=== PATIENT | male | born 1980 | race Two or more races ===

== ENCOUNTER 2017-08-06 08:47 | Day surgery (SDC) | payer BC ==
--- NOTE | 2017-08-06 08:10 | PCM.PREANE ---
<Lanie Leos - Last Filed: 08/06/17 08:07> Preanesthetic Assessment - Anesthesia/Transfusion/Family Hx Family History of Anesthesia Reaction: No Transfusion History: No Prior Transfusion(s) Intubation History: Unknown - Physical Assessment NPO Status Date: 08/05/17 Vital Signs: Last Vital Signs Temp 36.5 C 08/06/17 09:10 Pulse 84 08/06/17 09:10 Resp 16 08/06/17 09:10 BP 146/87 H 08/06/17 09:10 Pulse Ox 98 08/06/17 09:10 Mental Status: Alert & Oriented x3 - Lab Values: Laboratory Last Values MRSA (PCR) Negative 07/24/17 10:10 All lab values reviewed and noted and within acceptable ranges to proceed with scheduled procedure. - Allergies Allergies/Adverse Reactions: Allergies Allergy/AdvReac Type Severity Reaction Status Date / Time No Known Allergies Allergy Verified 08/05/17 15:12 - Acknowledgements Anesthesia Type Planned: General Anesthesia (And a right interscalene block under US guidance for post operative pain control requested by Dr. Farmer.) Pt an Appropriate Candidate for the Planned Anesthesia: Yes Alternatives and Risks of Anesthesia Discussed w Pt/Guardian: Yes Pt/Guardian Understands and Agrees with Anesthesia Plan: Yes PreAnesthesia Questionnaire - Past Health History Medical/Surgical History: Denies Medical/Surgical History HEENT History: Reports: None Cardiovascular History: Reports: None Respiratory History: Reports: Other (See Below) Other Respiratory History: snoring Genitourinary History: Reports: None MEDICAL OFFICE ASST History: Reports: None Musculoskeletal History: Reports: Back Pain, Chronic, Other (See Below) Other Musculoskeletal History: shoulder pain, rotator cuff tear Neurological History: Reports: None Psychiatric History: Reports: Other (See Below) Other Psychiatric History: fatigue Endocrine/Metabolic History: Reports: None Hematologic History: Reports: None Immunologic History: Reports: None Oncologic (Cancer) History: Reports: None Dermatologic History: Reports: None - Infectious Disease History Infectious Disease History: Reports: TB - Past Surgical History Head Surgeries/Procedures: Reports: None HEENT Surgical History: Reports: None Cardiovascular Surgical History: Reports: None GI Surgical History: Reports: Cholecystectomy Female Surgical History: Reports: None Male Surgical History: Reports: None Endocrine Surgical History: Reports: None Neurological Surgical History: Reports: None Musculoskeletal Surgical History: Reports: None Oncologic Surgical History: Reports: None Dermatological Surgical History: Reports: None - SUBSTANCE USE Smoking Status *Q: Never Smoker Second Hand Smoke Exposure: No Days Per Week of Alcohol Use: 0 Recreational Drug Use History: No - HOME MEDS Home Medications: Home Meds Acetaminophen/HYDROcodone [[place] 325-5 MG] 1 - 2 tab PO Q6H PRN #40 tablet 08/06 [Rx] Cyclobenzaprine [Flexeril] 10 mg PO Q8H PRN #40 tab 08/06/17 [Rx] - CURRENT (IN HOUSE) MEDS Current Meds: Current Medications Lactated Ringer's (Ringers, Lactated) 1,000 mls @ 125 mls/hr IV ASDIRECTED SHILOH Stop: 08/06/17 23:00 Last Admin: 08/06/17 09:20 Dose: 125 mls/hr Lidocaine/Sodium Bicarbonate (Buffered Lidocaine 1% In Ns 8.4%) 0.25 ml IV ONETIME PRN PRN Reason: Prior to IV Start Stop: 08/06/17 18:00 Last Admin: 08/06/17 09:20 Dose: 0.25 ml Sodium Chloride (Saline Flush) 10 ml FLUSH ASDIRECTED PRN PRN Reason: Keep Vein Open Stop: 08/06/17 23:00 Discontinued Medications Bupivacaine HCl (Marcaine 0.25%) Confirm Administered Dose 30 ml .ROUTE .STK- MED ONE Stop: 08/06/17 09:30 Cefazolin Sodium (Ancef) Confirm Administered Dose 2 gm .ROUTE .STK-MED ONE Stop: 08/06/17 07:10 Dexamethasone (Dexamethasone) Confirm Administered Dose 20 mg .ROUTE .STK-MED ONE Stop: 08/06/17 07:10 Epinephrine HCl (Adrenalin) 3 mg .XX ONETIME ONE Stop: 08/06/17 07:01 Epinephrine HCl (Adrenalin) Confirm Administered Dose 1 mg .ROUTE .STK-MED ONE Stop: 08/06/17 07:10 Fentanyl (Sublimaze) Confirm Administered Dose 250 mcg .ROUTE .STK-MED ONE Stop: 08/06/17 07:10 Lactated Ringer's (Ringers, Lactated) Confirm Administered Dose 1,000 mls @ as directed .ROUTE .STK-MED ONE Stop: 08/06/17 07:10 Lidocaine HCl (Xylocaine-Mpf 1%) Confirm Administered Dose 8 mls @ as directed .ROUTE .STK-MED ONE Stop: 08/06/17 07:10 Ketorolac Tromethamine (Toradol) Confirm Administered Dose 30 mg .ROUTE .STK- MED ONE Stop: 08/06/17 07:10 Midazolam HCl (Versed 1 Mg/Ml) Confirm Administered Dose 2 mg .ROUTE .STK-MED ONE Stop: 08/06/17 07:10 Ondansetron HCl (Zofran) Confirm Administered Dose 4 mg .ROUTE .STK-MED ONE Stop: 08/06/17 07:10 Propofol (Diprivan 20 Ml) Confirm Administered Dose 200 mg .ROUTE .STK-MED ONE Stop: 08/06/17 07:10 Rocuronium [place] (Zemuron) Confirm Administered Dose 50 mg .ROUTE .STK-MED ONE Stop: 08/06/17 07:10 Ropivacaine (Naropin 0.5%) Confirm Administered Dose 30 ml .ROUTE .STK-MED ONE Stop: 08/06/17 07:10 <Randolph Ramirez W - Last Filed: 08/06/17 10:03> Preanesthetic Assessment - Procedure Proposed Procedure: R) SVA with RCR, SA - Anesthesia/Transfusion/Family Hx Anesthesia History: Prior Anesthesia Without Reaction - Review of Systems General: No Symptoms Pulmonary: Other (? HARSHA, in need of a sleep study per patient ) Cardiovascular: No Symptoms Gastrointestinal: No Symptoms Neurological: No Symptoms Other: Reports: Anxiety (hx, currently not medicated ) - Physical Assessment NPO Status Time: 18:30 Height: 1.78 m Weight: 97 kg ASA Class: 2 Airway Class: Mallampati = 1 Dentition: Reports: Normal Dentition Thyro-Mental Finger Breadths: 3 Mouth Opening Finger Breadths: 3 ROM/Head Extension: Full Lungs: Clear to Auscultation, Normal Respiratory Effort Cardiovascular: Regular Rate, Regular Rhythm - Blood Blood Available: No Product(s) Available: None - Anesthesia Plan Pre-Op Medication Ordered: None - Acknowledgements Anesthesia Type Planned: General Anesthesia
[~2017-08-06 08:47] MED LIST: Dexamethasone 4 MG/ML 5 ML MDV ONE; EPINEPHrine 1 MG/ML 30 ML MDV ONE; EPINEPHrine 1 MG/ML SDV ONE; Ketorolac 30 MG/ML SDV ONE; Lactated Ringers 1,000 ML IV SCH; Lactated Ringers 1,000 ML ONE; Lidocaine 1% 8 ML ONE; Lidocaine 1%/Sod Bicarbonate in NS 8.4% 1 ML Syringe IV PRN; Midazolam 1 MG/ML 2 ML SDV ONE; Ondansetron 4 MG/2 ML SDV ONE; Propofol 200 MG/20 ML SDV ONE; Rocuronium 50 MG/5 ML Vial ONE; Ropivacaine 0.5% 5 MG/ML 30 ML SDV ONE; Sodium Chloride 0.9% 10 ML Syringe FLUSH PRN; ceFAZolin 1 GM Vial ONE; fentaNYL 250 MCG/5 ML SDV ONE
[2017-08-06] MEDS ORDERED: Bupivacaine 0.25% 30 ML SDV ONE (09:29)
[2017-08-06] MEDS ORDERED: Ondansetron 4 MG/2 ML SDV IVPUSH PRN (11:40)
[2017-08-06] MEDS ORDERED: fentaNYL 100 MCG/2 ML SDV IVPUSH PRN (11:40)
[2017-08-06] MEDS ORDERED: HYDROmorphone 0.5 MG/0.5 ML Syringe IVPUSH PRN (11:40)
--- NOTE | 2017-08-06 12:05 | PCM.OPNOTE ---
- General Post-Op/Procedure Note Date of Surgery/Procedure: 08/06/17 Operative Procedure(s): right shoulder video arthroscopy with rotator cuff repair, extensive debridement and subacromial decompression Pre Op Diagnosis: right shoulder rotator cuff tear with impingement Post-Op Diagnosis: Same Anesthesia Technique: General ET Tube, Regional Block (interscalene) Primary Surgeon: Magdy Farmer Anesthesia Provider: Claudia Gordon [employer]ry Worker: Serina Gomez EBL in mLs: 5 Complications: None Condition: Good
[2017-08-06] MEDS ORDERED: Propofol 200 MG/20 ML SDV ONE ×2 (12:08)
--- NOTE | 2017-08-06 12:28 | PCM.POSTAN ---
POST ANESTHESIA ASSESSMENT - MENTAL STATUS Mental Status: Somnolent - VITAL SIGNS Pulse Rate: 81 SaO2: 97 Resp Rate: 10 Blood Pressure: 103/64 Temperature: 36.8 C - RESPIRATORY Respiratory Status: Respiratory Rate WNL, Airway Patent, O2 Saturation Stable, Supplemental Oxygen - CARDIOVASCULAR CV Status: Pulse Rate WNL, Blood Pressure Stable - GASTROINTESTINAL GI Status: No Symptoms - PAIN Pain Score: 0 - POST OP HYDRATION Hydration Status: Adequate & Stable
[2017-08-06] MEDS ORDERED: Meperidine PF 50 MG/ML Syringe IVPUSH PRN (12:52)
[2017-08-06 13:17] VITALS: BP 137/83
--- NOTE | 2017-08-06 13:24 | PCM.SN ---
- Free Text/Narrative Note: Anesthesia Note: (Right Interscalene block note) Date: 08/06/2017 Time Out: 1021 Start: 1020 Stop: 1035 Surgical Procedure: Right Shoulder Video Arthroscopy with Rotator Cuff Repair, and Subacromial Decompression. Diagnosis Right Shoulder Rotator Cuff Tear Current Procedure: Right interscalene block under US guidance for postoperative pain control requested by Dr. Farmer. Patient chart reviewed, risk/benefits discussed with patient, consent obtained. Patient positioned supine, monitors/alarms on, oxygen placed via nasal cannula at 2 LPM. IV sedation administered: Versed 2mg IV @ 1022, Fentanyl 100mcg IV @ 1026 Right shoulder prepped with two chloropreps. Sterile drapes placed with aseptic technique noted. Under US guidance, right subclavian artery visualized along with the right brachial plexus. Plexus followed up to C6 cricoid level, and area localized with 2mls of 1% lidocaine. 22gauge 2 inch stimiplex needle advanced under US with 0.6mV with stimulation of biceps noted. Good stimulation noted with decreased voltage and absent at 0.2mVs. 1ml of Normal Saline injected with loss of stimulation noted to confirm needle not placed intraneurally. Incremental dosing of 5mls with negative aspiration noted prior to each injection of 0.5% ropivacaine with 1:200,000 epinephrine. Total volume=25mls. Please refer to nurses noted for vital signs. Rowdy Gordon CRNA
--- NOTE | 2017-08-06 13:43 | PCM48HPAN ---
Post Anesthesia Note - EVALUATION WITHIN 48HRS OF ANESTHETIC Vital Signs in Normal Range: Yes Patient Participated in Evaluation: Yes Respiratory Function Stable: Yes Airway Patent: Yes Cardiovascular Function Stable: Yes Hydration Status Stable: Yes Pain Control Satisfactory: Yes Nausea and Vomiting Control Satisfactory: Yes Mental Status Recovered: Yes
--- NOTE | 2017-08-17 14:34 | OR ---
DATE OF OPERATION: 08/06/2017 SURGEON: Magdy Farmer MD OPERATION PERFORMED: Right shoulder video arthroscopy with small rotator cuff repair, extensive debridement, and subacromial decompression. PREOPERATIVE DIAGNOSIS: Right shoulder rotator cuff tear with impingement. POSTOPERATIVE DIAGNOSIS: Right shoulder rotator cuff tear with impingement. ANESTHESIA: General endotracheal intubation with regional interscalene block. ANESTHESIA PROVIDER: Hayde Madden. AUTOMOTIVE DESIGN DRAFTER: Serina Gomez PA-C. ESTIMATED BLOOD LOSS: 5 mL. COMPLICATIONS: None. CONDITION: Stable. DESCRIPTION OF PROCEDURE: The patient was identified in the preoperative holding area. Proper site was marked and identified by the surgeon. The patient was taken back to the operating theater, where after adequate anesthesia, the patient was placed in a lazy left lateral decubitus position. A wedge was placed posteriorly. All bony prominences were well padded. The patient's right upper extremity was then sterilely prepped and draped in the usual sterile fashion. OR time-out was performed. The patient received 2 g of IV Ancef, 15 pounds of traction was applied to the right upper extremity. Standard posterior portal incision was made. The scope trocar was introduced to the glenohumeral joint. At this time, the glenohumeral joint showed no signs of pathology. An anterior portal was then created with the use of a spinal needle with outside in technique. There was no glenohumeral chondromalacia. There was no biceps pathology. There was significant high-grade partial-thickness tear noted to the anterior most aspect of the supraspinatus. Rest of the rotator cuff was intact. Subscapularis was intact. At this time, the scope trocar was removed and placed in the subacromial space. The patient was noted to have extensive bursitis in overgrowth of the bursa in the subacromial space. Lateral portal was created and an extensive debridement of subacromial space was then done at this time. At this time, the patient was noted to have a high-grade partial-thickness tear which was then brought into a small full-thickness tear at the anterior aspect of the supraspinatus. At this time, the rest of the tendon looked robust, so at this time, it was decided we would just do FiberTape in a horizontal mattress with a lateral row anchor only. At this time, the FiberTape was then passed in a horizontal mattress stitch-type fashion. This was brought through a 4.75 mm Arthrex SwiveLock anchor. The tap was used out laterally and the SwiveLock anchor was then placed. Tension was placed on the sutures and the SwiveLock anchor was then placed in the bone. It was noted to have adequate watertight repair at this time. At this time, the patient was also noted to have a type 2 acromion. So with use of a full-radius lilo and resector, a subacromial decompression/acromioplasty was performed back to a type 1 acromion which was found to have no sharp edges and in good flat contour. At this time, excess saline was drained from the shoulder. A 3-0 nylon simple suture was used for closure of the skin. The patient was placed in a sterile soft dressing and a pillow sling and sent to PACU in stable condition. SAVANNAH /[id number]
== END 2017-08-06 14:10 | disposition home or self-care (01) ==
LOC: JD.SDS 08:47
PROVIDERS: ATTEND Orthopaedic Surgery
DX: M75.101 Unspecified rotator cuff tear or rupture of right shoulder, not specified as traumatic (principal); M75.41 Impingement syndrome of right shoulder; Z90.49 Acquired absence of other specified parts of digestive tract; Z87.891 Personal history of nicotine dependence
CPT/HCPCS: 29823; 29826; 29827; 64415; 87641; J0171; J0690; J1100; J1885; J2175; J2250; J2405; J2795; J3010; J3490; J7120; 01620; 64450; J2704

== ENCOUNTER 2017-08-08 23:51 | Emergency (ER) | payer BC ==
--- NOTE | 2017-08-09 00:17 | EDM.PDOC ---
ED HPI GENERAL MEDICAL PROBLEM - General Chief Complaint: Chest Pain Stated Complaint: CHEST PAIN/SOB Time Seen by Provider: 08/08/17 23:58 Source of Information: Reports: Patient History Limitations: Reports: No Limitations - History of Present Illness INITIAL COMMENTS - FREE TEXT/NARRATIVE: This is a 36-year-old male. He was sitting at home this evening when he had a sudden onset of palpitations in his chest and he started breathing real rapidly and he started feeling some spasms or twitching in his left chest area. No pain down his arm. He denies any recent history of anxiety however in his old charts he does have a history of anxiety. Due to the palpitations and shortness of breath and the feeling in his left chest he comes to the ER for evaluation. He denies any sharp pain in his chest. He did just have surgery on his right shoulder some rotator cuff he is not sure which one. He denies any pain or swelling or redness of his legs he denies any leg symptoms whatsoever. He is noted during the conversation to have twitching every so often of his arms and legs. The palpitations have essentially resolved so we still having some shortness of breath and the spasms in his left chest region. He denies any nausea vomiting denies any diaphoresis and no abdominal symptoms. Chest Pain Score (Numeric/FACES): 6 - Related Data Allergies Allergy/AdvReac Type Severity Reaction Status Date / Time No Known Allergies Allergy Verified 08/05/17 15:12 Home Meds: Home Meds . [No Known Home Meds] 08/08/17 [History] Past Medical History - Past Health History Medical/Surgical History: Denies Medical/Surgical History HEENT History: Reports: None Cardiovascular History: Reports: None Respiratory History: Reports: Other (See Below) Other Respiratory History: snoring Genitourinary History: Reports: None CONVERTER SKIMMER History: Reports: None Musculoskeletal History: Reports: Back Pain, Chronic, Other (See Below) Other Musculoskeletal History: shoulder pain, rotator cuff tear Neurological History: Reports: None Psychiatric History: Reports: Anxiety, Other (See Below) Other Psychiatric History: fatigue Endocrine/Metabolic History: Reports: None Hematologic History: Reports: None Immunologic History: Reports: None Oncologic (Cancer) History: Reports: None Dermatologic History: Reports: None - Infectious Disease History Infectious Disease History: Reports: TB - Past Surgical History Head Surgeries/Procedures: Reports: None HEENT Surgical History: Reports: None Cardiovascular Surgical History: Reports: None Other GI Surgeries/Procedures: non functioning gallbladder Male Surgical History: Reports: None Endocrine Surgical History: Reports: None Neurological Surgical History: Reports: None Musculoskeletal Surgical History: Reports: None Oncologic Surgical History: Reports: None Dermatological Surgical History: Reports: None Social & Family History - Family History Family Medical History: Noncontributory - Tobacco Use Smoking Status *Q: Never Smoker Years of Tobacco use: 8 Second Hand Smoke Exposure: No - Caffeine Use Caffeine Use: Reports: None - Alcohol Use Days Per Week of Alcohol Use: 0 - Recreational Drug Use Recreational Drug Use: No Drug Use in Last 12 Months: No ED ROS GENERAL - Review of Systems Review Of Systems: See Below Constitutional: Denies: Fever, Chills HEENT: Reports: No Symptoms Respiratory: Reports: Shortness of Breath. Denies: Wheezing, Pleuritic Chest Pain, Cough Cardiovascular: Reports: Chest Pain. Denies: Lightheadedness Endocrine: Reports: No Symptoms GI/Abdominal: Denies: Abdominal Pain, Nausea, Vomiting : Reports: No Symptoms Musculoskeletal: Reports: Other (Status post right shoulder surgery) Skin: Denies: Pallor, Diaphoresis Neurological: Reports: No Symptoms Psychiatric: Reports: Anxiety Hematologic/Lymphatic: Reports: No Symptoms ED EXAM, GENERAL - Physical Exam Exam: See Below Exam Limited By: No Limitations General Appearance: Alert, WD/WN, Anxious Eye Exam: Bilateral Eye: Normal Inspection Ears: Normal External Exam Nose: Normal Inspection Throat/Mouth: Normal Inspection, Normal Lips, Normal Voice, No Airway Compromise Head: Normocephalic Neck: Supple Respiratory/Chest: No Respiratory Distress, Lungs Clear, Normal Breath Sounds Cardiovascular: Regular Rate, Rhythm, No Murmur, Other (He is not having any palpitations at this time) GI/Abdominal: Soft Back Exam: Normal Inspection, Full Range of Motion Extremities: Normal Inspection, Other (Arm and shoulder are in a shoulder immobilizer, he asked for use of his left upper extremity with no symptoms) Neurological: Alert, Oriented Psychiatric: Anxious Skin Exam: Warm, Dry EKG INTERPRETATION EKG Interpretation Comments: EKG showed a normal sinus rhythm there was no acute ST or T-wave changes or is no ischemia noted. Course - Vital Signs Last Recorded V/S: Last Vital Signs Temp 95.2 F L 08/08/17 23:54 Pulse Resp BP Pulse Ox - Orders/Labs/Meds Orders: Active Orders 24 hr Category Date Time Status EKG Documentation Completion [RC] STAT Care 08/09/17 00:09 Active Chest 2V [CR] Stat Exams 08/09/17 00:11 Taken Labs: Laboratory Tests 08/09/17 08/09/17 08/09/17 Range/Units 00:21 00:21 00:21 WBC 6.27 (4.23-9.07) K/mm3 RBC 4.15 L (4.63-6.08) M/mm3 Hgb 12.9 L (13.7-17.5) gm/L Hct 38.0 L (40.1-51.0) % MCV 91.6 (79.0-92.2) fl MCH 31.1 (25.7-32.2) pg MCHC 33.9 (32.2-35.5) g/dl RDW Std Deviation 40.4 (35.1-43.9) fL Plt Count 245 (163-337) K/mm3 MPV 9.2 L (9.4-12.3) fl Neut % (Auto) 48.4 (34.0-67.9) % Lymph % (Auto) 36.4 (21.8-53.1) % Pike % (Auto) 11.6 (5.3-12.2) % Eos % (Auto) 3.2 (0.8-7.0) Baso % (Auto) 0.2 (0.1-1.2) % Neut # (Auto) 3.04 (1.78-5.38) K/mm3 Lymph # (Auto) 2.28 (1.32-3.57) K/mm3 Pike # (Auto) 0.73 (0.30-0.82) K/mm3 Eos # (Auto) 0.20 (0.04-0.54) K/mm3 Baso # (Auto) 0.01 (0.01-0.08) K/mm3 D-Dimer, Quantitative 0.36 (0.19-0.59) mg/L Sodium 142 (136-145) mEq/L Potassium 3.8 (3.5-5.1) mEq/L Chloride 104 (98-107) mEq/L Carbon Dioxide 27 (21-32) mEq/L Anion Gap 14.8 (5-15) BUN 17 (7-18) mg/dL Creatinine 1.2 (0.7-1.3) mg/dL Est Cr Clr Drug Dosing 88.72 mL/min Estimated GFR (MDRD) > 60 (>60) mL/min BUN/Creatinine Ratio 14.2 (14-18) Glucose 101 (74-106) mg/dL Calcium 9.4 (8.5-10.1) mg/dL Total Bilirubin 0.3 (0.2-1.0) mg/dL AST 73 H (15-37) U/L ALT 140 H (16-63) U/L Alkaline Phosphatase 118 H (46-116) U/L Troponin I < 0.017 (0.00-0.056) ng/mL Total Protein 7.3 (6.4-8.2) g/dl Albumin 4.0 (3.4-5.0) g/dl Globulin 3.3 gm/dL Albumin/Globulin Ratio 1.2 (1-2) - Radiology Interpretation Free Text/Narrative:: Chest x-ray did not show any acute changes - Re-Assessments/Exams Free Text/Narrative Re-Assessment/Exam: 08/09/17 01:16 I spoke to the patient regarding his completely negative workup. This certainly could be an episode of anxiety with shortness of breath and palpitations. Encouraged him to follow up with his family doctor if these episodes continue. Departure - Departure Time of Disposition: 01:19 Disposition: Home, Self-Care 01 Condition: Good Clinical Impression: Palpitations, Shortness of breath Referrals: Magdalene Chaudhary [employer] [Primary Care Provider] - Forms: ED Department Discharge Additional Instructions: If you continue to have episodes like to experience tonight, follow up with your family physician for recheck and further workup, return to the ER if your symptoms worsen - My Orders Last 24 Hours: My Active Orders 08/09/17 00:09 EKG Documentation Completion [RC] STAT 08/09/17 00:11 Chest 2V [CR] Stat - Assessment/Plan Last 24 Hours: My Active Orders 08/09/17 00:09 EKG Documentation Completion [RC] STAT 08/09/17 00:11 Chest 2V [CR] Stat
--- NOTE | 2017-08-09 17:47 | CR ---
Chest: Two views of the chest were obtained. Comparison: Prior chest x-ray of 10/25/13. Heart size and mediastinum are within normal limits. Lungs are clear. Mild scoliosis is noted within the spine. Minimal endplate spurring is noted within the spine. Impression: 1. Incidental findings. Nothing acute is appreciated. Diagnostic code #2
== END 2017-08-09 01:30 | disposition home or self-care (01) ==
LOC: JD.ED 23:51
DX: R00.2 Palpitations (principal); R06.02 Shortness of breath
CPT/HCPCS: 36415; 71046; 71046-26; 80053; 84484; 85025; 85379; 93005; 99284; 99285-25

== ENCOUNTER 2018-08-20 21:37 | Emergency (ER) | payer BC ==
[2018-08-20 21:44] VITALS: BP 139/84
--- NOTE | 2018-08-20 23:17 | EDM.PDOC ---
ED HPI GENERAL MEDICAL PROBLEM - General Chief Complaint: Chest Pain Stated Complaint: CHEST PAIN Time Seen by Provider: 08/20/18 22:13 Source of Information: Reports: Patient History Limitations: Reports: No Limitations - History of Present Illness INITIAL COMMENTS - FREE TEXT/NARRATIVE: This is a 37-year-old male. Apparently he's been having some soreness in his left chest for the last couple of days and then tonight he had marked increased pain in the left chest and shoulder area with some shortness of breath and difficulty in breathing. You state when he takes a deep breath he gets increased pain in the left anterior chest area. Due to the pain and soreness in the left chest he comes to the ER for evaluation. He does do a lot of overhead work and he does do a lot of lifting but over the last couple of days he states he has been doing much of anything but class work. He has no history of cardiac problems. He's had no cough no congestion no fever no chills and no other acute symptoms. He denies any diaphoresis no nausea and vomiting. Left Chest Pain Score (Numeric/FACES): 6 - Related Data Allergies Allergy/AdvReac Type Severity Reaction Status Date / Time No Known Allergies Allergy Verified 08/20/18 21:40 Past Medical History - Past Health History Medical/Surgical History: Denies Medical/Surgical History HEENT History: Reports: None Cardiovascular History: Reports: None Respiratory History: Reports: Other (See Below) Other Respiratory History: snoring Genitourinary History: Reports: None [employer]ER [employer]MAN History: Reports: None Musculoskeletal History: Reports: Back Pain, Chronic, Other (See Below) Other Musculoskeletal History: shoulder pain, rotator cuff tear Neurological History: Reports: None Psychiatric History: Reports: Anxiety, Other (See Below) Other Psychiatric History: fatigue Endocrine/Metabolic History: Reports: None Hematologic History: Reports: None Immunologic History: Reports: None Oncologic (Cancer) History: Reports: None Dermatologic History: Reports: None - Infectious Disease History Infectious Disease History: Reports: TB - Past Surgical History Head Surgeries/Procedures: Reports: None HEENT Surgical History: Reports: None Cardiovascular Surgical History: Reports: None GI Surgical History: Reports: Cholecystectomy Other GI Surgeries/Procedures: non functioning gallbladder Male Surgical History: Reports: None Endocrine Surgical History: Reports: None Neurological Surgical History: Reports: None Musculoskeletal Surgical History: Reports: Shoulder Surgery Oncologic Surgical History: Reports: None Dermatological Surgical History: Reports: None Social & Family History - Family History Family Medical History: Noncontributory - Tobacco Use Smoking Status *Q: Never Smoker - Caffeine Use Caffeine Use: Reports: Coffee - Recreational Drug Use Recreational Drug Use: No - Living Situation & Occupation Living situation: Reports: Occupation: Employed ED ROS GENERAL - Review of Systems Review Of Systems: See Below Constitutional: Denies: Fever, Chills HEENT: Reports: No Symptoms Respiratory: Reports: Shortness of Breath. Denies: Wheezing, Cough Cardiovascular: Reports: Chest Pain Endocrine: Reports: No Symptoms GI/Abdominal: Reports: No Symptoms : Reports: No Symptoms Musculoskeletal: Reports: No Symptoms Skin: Reports: No Symptoms Neurological: Reports: No Symptoms Psychiatric: Reports: No Symptoms Hematologic/Lymphatic: Reports: No Symptoms ED EXAM, GENERAL - Physical Exam Exam: See Below Exam Limited By: No Limitations General Appearance: Alert, WD/WN, No Apparent Distress Eye Exam: Bilateral Eye: Normal Inspection Ears: Normal External Exam Nose: Normal Inspection Throat/Mouth: Normal Inspection, Normal Lips, Normal Voice, No Airway Compromise Head: Normocephalic Neck: Supple Respiratory/Chest: No Respiratory Distress, Lungs Clear, Normal Breath Sounds, Other (Palpation of the pectoralis muscle on the left is tender when I grab hold of his pectoralis tendon as the day Of the humerus he has marked pain, lifting his arm up overhead also increases the pain and stiffness, he has some also upper back soreness and rhomboid and trapezius muscle soreness on the left , there is no rib tenderness, there is no sternocleidomastoid tenderness, there is no osteochondritis noted.) Cardiovascular: Regular Rate, Rhythm, No Murmur GI/Abdominal: Soft, Non-Tender Back Exam: Normal Inspection, Full Range of Motion Extremities: Normal Inspection, Normal Range of Motion Neurological: Alert, Oriented Psychiatric: Normal Affect, Normal Mood Skin Exam: Warm, Dry EKG INTERPRETATION EKG Date: 08/20/18 Time: 09:46 Rhythm: NSR EKG Interpretation Comments: EKG shows a normal sinus rhythm rate of 72, no acute ST or T-wave changes, no ischemia noted. Course - Vital Signs Last Recorded V/S: Last Vital Signs Temp 96.5 F 08/20/18 21:41 Pulse 75 08/20/18 21:41 Resp 17 08/20/18 21:41 BP 139/84 08/20/18 21:41 Pulse Ox 100 08/20/18 21:41 - Orders/Labs/Meds Orders: Active Orders 24 hr Category Date Time Status EKG 12 Lead [EKG Documentation Completion] [RC] URGENT Care 08/20/18 21:52 Active Chest 2V [CR] Stat Exams 08/20/18 22:33 Taken Labs: Laboratory Tests 08/20/18 08/20/18 08/20/18 Range/Units 22:47 22:47 22:47 WBC 7.30 (4.23-9.07) K/mm3 RBC 4.44 L (4.63-6.08) M/mm3 Hgb 14.2 (13.7-17.5) gm/L Hct 40.9 (40.1-51.0) % MCV 92.1 (79.0-92.2) fl MCH 32.0 (25.7-32.2) pg MCHC 34.7 (32.2-35.5) g/dl RDW Std Deviation 40.1 (35.1-43.9) fL Plt Count 274 (163-337) K/mm3 MPV 9.4 (9.4-12.3) fl Neut % (Auto) 46.4 (34.0-67.9) % Lymph % (Auto) 37.8 (21.8-53.1) % [place] % (Auto) 11.6 (5.3-12.2) % Eos % (Auto) 3.8 (0.8-7.0) Baso % (Auto) 0.3 (0.1-1.2) % Neut # (Auto) 3.38 (1.78-5.38) K/mm3 Lymph # (Auto) 2.76 (1.32-3.57) K/mm3 [place] # (Auto) 0.85 H (0.30-0.82) K/mm3 Eos # (Auto) 0.28 (0.04-0.54) K/mm3 Baso # (Auto) 0.02 (0.01-0.08) K/mm3 D-Dimer, Quantitative < 0.19 L (0.19-0.50) mg/L Sodium 140 (136-145) mEq/L Potassium 3.2 L (3.5-5.1) mEq/L Chloride 103 (98-107) mEq/L Carbon Dioxide 26 (21-32) mEq/L Anion Gap 14.2 (5-15) BUN 17 (7-18) mg/dL Creatinine 1.2 (0.7-1.3) mg/dL Est Cr Clr Drug Dosing 87.87 mL/min Estimated GFR (MDRD) > 60 (>60) mL/min BUN/Creatinine Ratio 14.2 (14-18) Glucose 113 H (74-106) mg/dL Calcium 9.3 (8.5-10.1) mg/dL Total Bilirubin 0.4 (0.2-1.0) mg/dL AST 27 (15-37) U/L ALT 75 H (16-63) U/L Alkaline Phosphatase 110 (46-116) U/L Troponin I < 0.017 (0.00-0.056) ng/mL Total Protein 7.7 (6.4-8.2) g/dl Albumin 4.3 (3.4-5.0) g/dl Globulin 3.4 gm/dL Albumin/Globulin Ratio 1.3 (1-2) - Radiology Interpretation Free Text/Narrative:: Chest x-ray does not show any acute changes - Re-Assessments/Exams Free Text/Narrative Re-Assessment/Exam: 08/21/18 00:00 The patient's CBC was normal, the chem panel was negative except for a slightly low potassium, troponin was normal, d-dimer was normal. I explained to the patient that his cardiac enzymes were normal and his EKG was normal so I do not believe he is having any sort of cardiac issues. He does not have pneumonia he does not have a blood clot. Since he is still very tender in that pectoralis muscle I believe he has a muscle strain. I suggested he use heat to the muscle take some Tylenol or ibuprofen and just be careful. Departure - Departure Time of Disposition: 00:02 Disposition: Home, Self-Care 01 Condition: Good Clinical Impression: Chest wall muscle strain Qualifiers: Encounter type: initial encounter Qualified Code(s): S29.011A - Strain of muscle and tendon of front wall of thorax, initial encounter Instructions: Muscle Strain, [id number] Referrals: PCP,None [Primary Care Provider] - Forms: ED Department Discharge Additional Instructions: Use heat to the chest to help with the soreness, take some Tylenol or ibuprofen as needed for the soreness, gentle activity over the next few days but I would stretch that muscle to make sure it stays supple, follow-up with your family doctor next week if needed or return to the ER if your symptoms worsen - My Orders Last 24 Hours: My Active Orders 08/20/18 21:52 EKG 12 Lead [EKG Documentation Completion] [RC] URGENT 08/20/18 22:33 Chest 2V [CR] Stat - Assessment/Plan Last 24 Hours: My Active Orders 08/20/18 21:52 EKG 12 Lead [EKG Documentation Completion] [RC] URGENT 08/20/18 22:33 Chest 2V [CR] Stat
--- NOTE | 2018-08-21 09:39 | CR ---
Chest: Two views of the chest were obtained. Comparison: Previous chest x-ray of 04/15/18. Heart size and mediastinum are normal. Lungs are clear. Bony structures are unremarkable. Impression: 1. Nothing acute is seen on two-view chest x-ray. Diagnostic code #1
== END 2018-08-21 00:12 | disposition home or self-care (01) ==
LOC: JD.ED 21:37
DX: S29.011A Strain of muscle and tendon of front wall of thorax, initial encounter (principal); F41.9 Anxiety disorder, unspecified; Z90.49 Acquired absence of other specified parts of digestive tract; X50.0XXA Overexertion from strenuous movement or load, initial encounter
CPT/HCPCS: 36415; 71046; 71046-26; 80053; 84484; 85025; 85379; 93005; 93010; 99282; 99285-25

== ENCOUNTER 2018-10-11 16:11 | Inpatient (IN) | payer BC ==
[2018-10-11] MEDS ORDERED: Sodium Chloride 0.9% 10 ML Syringe FLUSH PRN (16:26)
[2018-10-11] MEDS ORDERED: Diltiazem 50 MG/10 ML SDV IVPUSH ONE (16:27)
[2018-10-11] MEDS ORDERED: Diltiazem 125 MG in Sodium Chloride 0.9% 100 ML IV SCH (16:30)
[2018-10-11] MEDS ORDERED: Sodium Chloride 0.9% 1,000 ML IV SCH (16:30)
--- NOTE | 2018-10-11 17:10 | CR ---
Chest: Portable view of the chest was obtained. Comparison: Prior chest x-ray of 08/20/18. Heart size and mediastinum are normal. Lungs are clear. Bony structures are grossly intact. Impression: 1. Nothing acute is seen on portable chest x-ray. Diagnostic code #1
--- NOTE | 2018-10-11 17:23 | EDM.PDOC ---
ED HPI GENERAL MEDICAL PROBLEM - General Chief Complaint: Chest Pain Stated Complaint: CHEST TIGHTNESS AND LIGHTHEADED Time Seen by Provider: 10/11/18 16:16 Source of Information: Reports: Patient History Limitations: Reports: No Limitations - History of Present Illness INITIAL COMMENTS - FREE TEXT/NARRATIVE: The patient presents with chest pain and shortness of breath. This started this morning after he woke up. He says the pain is sharp and radiates to his back. He also noticed that his heart was racing. Something similar has happened before over the years he has been seen here a few times for chest pain. No atrial fibrillation was found. His heart rate was in the 160s and 170s when he arrived. It appears to be A-fib. He has no fever, chills, cough, congestion, runny nose, abdominal pain, nausea or vomiting. He has no history of thyroid problems. He does not drink or take any drugs. He does not smoke. Onset: Gradual Duration: Hour(s): Location: Reports: Chest Quality: Reports: Sharp Severity: Moderate Improves with: Reports: None Worsens with: Reports: None Associated Symptoms: Reports: Chest Pain, Shortness of Breath. Denies: Cough, Fever/Chills, Nausea/Vomiting, Seizure Chest Pain Score (Numeric/FACES): 3 - Related Data Allergies Allergy/AdvReac Type Severity Reaction Status Date / Time No Known Allergies Allergy Verified 10/11/18 16:19 Home Meds: Home Meds . 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 Musculoskeletal History: Reports: Back Pain, Chronic, Other (See Below) Other Musculoskeletal History: shoulder pain, rotator cuff tear Neurological History: Reports: None Psychiatric History: Reports: Anxiety, Other (See Below) Other Psychiatric History: fatigue Endocrine/Metabolic History: Reports: None Hematologic History: Reports: None Immunologic History: Reports: None Oncologic (Cancer) History: Reports: None Dermatologic History: Reports: None - Infectious Disease History Infectious Disease History: Reports: TB - Past Surgical History Head Surgeries/Procedures: Reports: None HEENT Surgical History: Reports: None Cardiovascular Surgical History: Reports: None GI Surgical History: Reports: Cholecystectomy Other GI Surgeries/Procedures: non functioning gallbladder Male Surgical History: Reports: None Endocrine Surgical History: Reports: None Neurological Surgical History: Reports: None Musculoskeletal Surgical History: Reports: Shoulder Surgery Oncologic Surgical History: Reports: None Dermatological Surgical History: Reports: None Social & Family History - Family History Family Medical History: Noncontributory HEENT: Reports: None Cardiac: Reports: None Respiratory: Reports: None GI: Reports: None : Reports: None OBGYN: Reports: None Musculoskeletal: Reports: None Neurological: Reports: None Psychiatric: Reports: None Endocrine/Metabolic: Reports: None Hematologic: Reports: None Immunologic: Reports: None Dermatologic: Reports: None Oncologic: Reports: None - Tobacco Use Smoking Status *Q: Never Smoker - Caffeine Use Caffeine Use: Reports: None - Recreational Drug Use Recreational Drug Use: No - Living Situation & Occupation Living situation: Reports: Occupation: Employed ED ROS GENERAL - Review of Systems Review Of Systems: See Below Constitutional: Reports: No Symptoms HEENT: Reports: No Symptoms Respiratory: Reports: Shortness of Breath Cardiovascular: Reports: Chest Pain Endocrine: Reports: No Symptoms GI/Abdominal: Reports: No Symptoms : Reports: No Symptoms Musculoskeletal: Reports: No Symptoms Skin: Reports: No Symptoms ED EXAM, GENERAL - Physical Exam Exam: See Below Exam Limited By: No Limitations General Appearance: Alert, No Apparent Distress Ears: Normal External Exam Nose: Normal Inspection Head: Atraumatic, Normocephalic Neck: Normal Inspection Respiratory/Chest: No Respiratory Distress, Lungs Clear, Normal Breath Sounds Cardiovascular: Regular Rate, Rhythm, No Edema, No Murmur GI/Abdominal: Soft, Non-Tender, No Organomegaly, No Mass Back Exam: Normal Inspection Extremities: Normal Inspection Neurological: Alert, Oriented, No Motor/Sensory Deficits EKG INTERPRETATION EKG Date: 10/11/18 Time: 16:20 Rhythm: A-Fib Rate (Beats/Min): 178 [place]: Normal QRS: Normal ST-T: Normal QT: Normal Course - Vital Signs Last Recorded V/S: Last Vital Signs Temp 97.5 F 10/11/18 16:22 Pulse 167 H 10/11/18 16:22 Resp 16 10/11/18 16:22 BP 117/87 10/11/18 16:22 Pulse Ox 100 10/11/18 16:22 - Orders/Labs/Meds Orders: Active Orders 24 hr Category Date Time Status Patient Status [ADT] Routine ADT 10/11/18 17:31 Active Cardiac Monitoring [RC] . DIRECTED Care 10/11/18 16:26 Active EKG Documentation Completion [RC] STAT Care 10/11/18 16:24 Active Peripheral IV Care [RC] . DIRECTED Care 10/11/18 16:27 Active Diltiazem 125 mg Med 10/11/18 16:30 Active Sodium Chloride 0.9% [Normal Saline] 100 ml IV TITRATE Sodium Chloride 0.9% [Normal Saline] 1,000 ml Med 10/11/18 16:30 Active IV ASDIRECTED Sodium Chloride 0.9% [Saline Flush] Med 10/11/18 16:26 Active 10 ml FLUSH ASDIRECTED PRN Peripheral IV Insertion Adult [OM.PC] Stat Oth 10/11/18 16:26 Ordered Medication Orders Sodium Chloride (Normal Saline) 1,000 mls @ 125 mls/hr IV ASDIRECTED SHILOH Last Admin: 10/11/18 16:34 Dose: 125 mls/hr Diltiazem HCl 125 mg/ Sodium (Chloride) 125 mls @ 10 mls/hr IV TITRATE SHILOH; Protocol Last Admin: 10/11/18 16:42 Dose: 10 mg/hr, 10 mls/hr Sodium Chloride (Saline Flush) 10 ml FLUSH ASDIRECTED PRN PRN Reason: Keep Vein Open Last Admin: 10/11/18 16:35 Dose: 10 ml Labs: Laboratory Tests 10/11/18 10/11/18 10/11/18 Range/Units 16:20 16:20 16:20 WBC 7.50 (4.23-9.07) K/mm3 RBC 4.66 (4.63-6.08) M/mm3 Hgb 14.8 (13.7-17.5) gm/L Hct 43.1 (40.1-51.0) % MCV 92.5 H (79.0-92.2) fl MCH 31.8 (25.7-32.2) pg MCHC 34.3 (32.2-35.5) g/dl RDW Std Deviation 40.6 (35.1-43.9) fL Plt Count 273 (163-337) K/mm3 MPV 9.9 (9.4-12.3) fl Neut % (Auto) 49.7 (34.0-67.9) % Lymph % (Auto) 33.2 (21.8-53.1) % [place] % (Auto) 12.9 H (5.3-12.2) % Eos % (Auto) 4.0 (0.8-7.0) Baso % (Auto) 0.1 (0.1-1.2) % Neut # (Auto) 3.72 (1.78-5.38) K/mm3 Lymph # (Auto) 2.49 (1.32-3.57) K/mm3 [place] # (Auto) 0.97 H (0.30-0.82) K/mm3 Eos # (Auto) 0.30 (0.04-0.54) K/mm3 Baso # (Auto) 0.01 (0.01-0.08) K/mm3 Sodium 141 (136-145) mEq/L Potassium 3.6 (3.5-5.1) mEq/L Chloride 103 (98-107) mEq/L Carbon Dioxide 29 (21-32) mEq/L Anion Gap 12.6 (5-15) BUN 16 (7-18) mg/dL Creatinine 1.3 (0.7-1.3) mg/dL Est Cr Clr Drug Dosing 80.33 mL/min Estimated GFR (MDRD) > 60 (>60) mL/min BUN/Creatinine Ratio 12.3 L (14-18) Glucose 86 (74-106) mg/dL Calcium 9.6 (8.5-10.1) mg/dL Total Bilirubin 0.4 (0.2-1.0) mg/dL AST 27 (15-37) U/L ALT 74 H (16-63) U/L Alkaline Phosphatase 106 (46-116) U/L Troponin I < 0.017 (0.00-0.056) ng/mL Total Protein 7.7 (6.4-8.2) g/dl Albumin 4.1 (3.4-5.0) g/dl Globulin 3.6 gm/dL Albumin/Globulin Ratio 1.1 (1-2) TSH 3rd Generation 2.027 (0.358-3.74) uIU/mL Ethyl Alcohol 0.00 (0.00) gm% Meds: Medications Generic Name Dose Route Start Last Admin Trade Name Freq PRN Reason Stop Dose Admin Sodium Chloride 1,000 mls @ 125 mls/hr 10/11/18 16:30 10/11/18 16:34 Normal Saline IV 125 mls/hr ASDIRECTED SHILOH Administration Diltiazem HCl 125 mg/ Sodium 125 mls @ 10 mls/hr 10/11/18 16:30 10/11/18 16: 42 Chloride IV 10 mg/hr TITRATE SHILOH 10 mls/hr Administration Protocol 10 MG/HR Sodium Chloride 10 ml 10/11/18 16:26 10/11/18 16:35 Saline Flush FLUSH 10 ml ASDIRECTED PRN Administration Keep Vein Open Discontinued Medications Generic Name Dose Route Start Last Admin Trade Name Freq PRN Reason Stop Dose Admin Diltiazem HCl 10 mg 10/11/18 16:27 10/11/18 16:33 Cardizem IVPUSH 10/11/18 16:28 10 mg ONETIME ONE Administration - Re-Assessments/Exams Free Text/Narrative Re-Assessment/Exam: 10/11/18 17:46 I ordered an IV NS at 125mL/hr, cardizem bolus 10mg IV and a drip at 10mg/hr, labs, EKG, and CXR. His EKG shows atrial fibrillation with RVR at 178. His CXR looks good. His CBC looks good. His ALT was slightly elevated at 74. His troponin is normal. His TSH is normal. His ETOH was negative. His heart rate did come down some but not to normal and he did not convert. I feel he needs to be admitted to the ICU. I called Dr Ross and he agreed to the admission. Departure - Departure Time of Disposition: 17:50 Disposition: Admitted As Inpatient 67 Condition: Fair Clinical Impression: Atrial fibrillation with RVR Chest pain Qualifiers: Chest pain type: unspecified Qualified Code(s): R07.9 - Chest pain, unspecified Referrals: Annika Russo MD [Primary Care Provider] - Forms: ED Department Discharge - My Orders Last 24 Hours: My Active Orders 10/11/18 16:24 EKG Documentation Completion [RC] STAT 10/11/18 16:26 Cardiac Monitoring [RC] . DIRECTED Sodium Chloride 0.9% [Saline Flush] 10 ml FLUSH ASDIRECTED PRN Peripheral IV Insertion Adult [OM.PC] Stat 10/11/18 16:27 Peripheral IV Care [RC] . DIRECTED 10/11/18 16:30 Diltiazem 125 mg Sodium Chloride 0.9% [Normal Saline] 100 ml IV TITRATE Sodium Chloride 0.9% [Normal Saline] 1,000 ml IV ASDIRECTED 10/11/18 17:31 Patient Status [ADT] Routine - Assessment/Plan Last 24 Hours: My Active Orders 10/11/18 16:24 EKG Documentation Completion [RC] STAT 10/11/18 16:26 Cardiac Monitoring [RC] . DIRECTED Sodium Chloride 0.9% [Saline Flush] 10 ml FLUSH ASDIRECTED PRN Peripheral IV Insertion Adult [OM.PC] Stat 10/11/18 16:27 Peripheral IV Care [RC] . DIRECTED 10/11/18 16:30 Diltiazem 125 mg Sodium Chloride 0.9% [Normal Saline] 100 ml IV TITRATE Sodium Chloride 0.9% [Normal Saline] 1,000 ml IV ASDIRECTED 10/11/18 17:31 Patient Status [ADT] Routine
[2018-10-11] MEDS ORDERED: Acetaminophen 325 MG Tab PO PRN (22:02)
--- NOTE | 2018-10-11 22:06 | PCM.HP ---
H&P History of Present Illness - General Date of Service: 10/11/18 Admit Problem/Dx: Admission Diagnosis/Problem Admission Diagnosis/Problem Atrial fibrillation Source of Information: Patient, Provider - History of Present Illness Initial Comments - Free Text/Narative: This 38-year-old male comes in this morning with complaints of chest pain and shortness of breath. Patient states that he woke up with this pain, laid down, and when he woke back up he continued to have this sharp pain in his chest that radiated to his back. Patient did notice some racing heart. Over the last month he has been feeling more tired and run down. He has not noticed chest pain or shortness of breath. He denies any PND, orthopnea, weight gain, or lower extremity edema. He has been in the emergency room a few times since 2013 for similar complaints but never found to be in atrial fibrillation. Today when he arrived his heart rate was 160-170 and appeared to be in A. fib. Patient was given Cardizem IV push and then was placed on a Cardizem drip. He is currently on 10 mg hour. Since patient has been transferred to the ICU pulse has dropped down to the 80s and 90s with occasional runs into the 110s and 120s. Patient denies any illicit drug use and only drinks 1 beer on a rare occasion. Denies any thyroid issues or other medical problems. Denies any new onset fever, chills , cough, congestion, or runny nose. Patient was seen by his primary care provider 2 weeks ago with left-sided chest pain. Patient was not in A. fib at that time and the provider discussed getting an MRI for diagnosis. Chest Pain Score (Numeric/FACES): 1 - Related Data Allergies/Adverse Reactions: Allergies Allergy/AdvReac Type Severity Reaction Status Date / Time No Known Allergies Allergy Verified 10/11/18 18:50 Home Medications: Home Meds . [No Known Home Meds] 08/21/18 [History] Past Medical History - Past Health History Medical/Surgical History: Denies Medical/Surgical History HEENT History: Reports: None Cardiovascular History: Reports: Other (See Below) Other Cardiovascular History: hx chest pain Respiratory History: Reports: Other (See Below) Other Respiratory History: snoring Genitourinary History: Reports: None OPERATIONS RESEARCH ENGINEER History: Reports: None Musculoskeletal History: Reports: Back Pain, Chronic, Other (See Below) Other Musculoskeletal History: shoulder pain, rotator cuff tear Neurological History: Reports: None Psychiatric History: Reports: Anxiety Other Psychiatric History: fatigue Endocrine/Metabolic History: Reports: None Hematologic History: Reports: None Immunologic History: Reports: None Oncologic (Cancer) History: Reports: None Dermatologic History: Reports: None - Infectious Disease History Infectious Disease History: Reports: TB Other Infectious Disease History: positive skin test when pt was 19 years old, med course completed - Past Surgical History Head Surgeries/Procedures: Reports: None HEENT Surgical History: Reports: None Cardiovascular Surgical History: Reports: None GI Surgical History: Reports: Cholecystectomy Other GI Surgeries/Procedures: non functioning gallbladder Male Surgical History: Reports: None Endocrine Surgical History: Reports: None Neurological Surgical History: Reports: None Musculoskeletal Surgical History: Reports: Shoulder Surgery Oncologic Surgical History: Reports: None Dermatological Surgical History: Reports: None Social & Family History - Family History Family Medical History: Noncontributory HEENT: Reports: None Cardiac: Reports: None Respiratory: Reports: None GI: Reports: None : Reports: None OBGYN: Reports: None Musculoskeletal: Reports: None Neurological: Reports: None Psychiatric: Reports: None Endocrine/Metabolic: Reports: None Hematologic: Reports: None Immunologic: Reports: None Dermatologic: Reports: None Oncologic: Reports: None - Tobacco Use Smoking Status *Q: Never Smoker Second Hand Smoke Exposure: No - Caffeine Use Caffeine Use: Reports: Coffee, Tea - Recreational Drug Use Recreational Drug Use: No - Living Situation & Occupation Living situation: Reports: Occupation: Employed H&P Review of Systems - Review of Systems: Review Of Systems: ROS reveals no pertinent complaints other than HPI. Exam - Exam Exam: See Below - Vital Signs Vital Signs: Last Vital Signs Temp 98.5 F 10/11/18 20:00 Pulse 88 10/11/18 20:00 Resp 16 10/11/18 20:00 BP 105/85 10/11/18 20:00 Pulse Ox 98 10/11/18 20:00 Weight: 230 lb - Exam Quality Assessment: No: Supplemental Oxygen General: Alert, Oriented HEENT: Conjunctiva Clear, Mucosa Moist & Fults Neck: Supple, Trachea Midline Lungs: Clear to Auscultation, Normal Respiratory Effort Cardiovascular: Irregular Rhythm, Tachycardia GI/Abdominal Exam: Normal Bowel Sounds, Soft, Non-Tender, No Organomegaly, No Distention, No Abnormal Bruit Back Exam: Normal Inspection Extremities: Normal Inspection, Normal Range of Motion, Non-Tender, No Pedal Edema, Normal Capillary Refill Skin: Warm, Dry, Intact Neuro Extensive - Mental Status: Alert, Oriented x3, Normal Mood/Affect Neuro Extensive - Motor, Sensory, Reflexes: CN II-XII Intact, Normal Gait, Normal Reflexes Psychiatric: Alert, Normal Affect, Normal Mood - Patient Data Lab Results Last 24 hrs: Laboratory Results - last 24 hr 10/11/18 10/11/18 10/11/18 Range/Units 16:20 16:20 16:20 WBC 7.50 (4.23-9.07) K/mm3 RBC 4.66 (4.63-6.08) M/mm3 Hgb 14.8 (13.7-17.5) gm/L Hct 43.1 (40.1-51.0) % MCV 92.5 H (79.0-92.2) fl MCH 31.8 (25.7-32.2) pg MCHC 34.3 (32.2-35.5) g/dl RDW Std Deviation 40.6 (35.1-43.9) fL Plt Count 273 (163-337) K/mm3 MPV 9.9 (9.4-12.3) fl Neut % (Auto) 49.7 (34.0-67.9) % Lymph % (Auto) 33.2 (21.8-53.1) % Branch % (Auto) 12.9 H (5.3-12.2) % Eos % (Auto) 4.0 (0.8-7.0) Baso % (Auto) 0.1 (0.1-1.2) % Neut # (Auto) 3.72 (1.78-5.38) K/mm3 Lymph # (Auto) 2.49 (1.32-3.57) K/mm3 Branch # (Auto) 0.97 H (0.30-0.82) K/mm3 Eos # (Auto) 0.30 (0.04-0.54) K/mm3 Baso # (Auto) 0.01 (0.01-0.08) K/mm3 Sodium 141 (136-145) mEq/L Potassium 3.6 (3.5-5.1) mEq/L Chloride 103 (98-107) mEq/L Carbon Dioxide 29 (21-32) mEq/L Anion Gap 12.6 (5-15) BUN 16 (7-18) mg/dL Creatinine 1.3 (0.7-1.3) mg/dL Est Cr Clr Drug Dosing 80.33 mL/min Estimated GFR (MDRD) > 60 (>60) mL/min BUN/Creatinine Ratio 12.3 L (14-18) Glucose 86 (74-106) mg/dL Calcium 9.6 (8.5-10.1) mg/dL Total Bilirubin 0.4 (0.2-1.0) mg/dL AST 27 (15-37) U/L ALT 74 H (16-63) U/L Alkaline Phosphatase 106 (46-116) U/L Troponin I < 0.017 (0.00-0.056) ng/mL Total Protein 7.7 (6.4-8.2) g/dl Albumin 4.1 (3.4-5.0) g/dl Globulin 3.6 gm/dL Albumin/Globulin Ratio 1.1 (1-2) TSH 3rd Generation 2.027 (0.358-3.74) uIU/mL Ethyl Alcohol 0.00 (0.00) gm% Result Diagrams: 10/11/18 16:20 10/11/18 16:20 EKG INTERPRETATION EKG Date: 10/11/18 Rhythm: A-Fib Rate (Beats/Min): 178 [place]: Normal P-Wave: Absent QRS: Normal ST-T: Normal QT: Normal - Problem List (1) Atrial fibrillation with RVR SNOMED Code(s): 670677248240527 ICD Code: I48.91 - UNSPECIFIED ATRIAL FIBRILLATION Status: Acute Current Visit: Yes (2) Chest pain SNOMED Code(s): 45145120 ICD Code: R07.9 - CHEST PAIN, UNSPECIFIED Status: Acute Current Visit: Yes Qualifiers: Chest pain type: unspecified Qualified Code(s): R07.9 - Chest pain, unspecified Problem List Initiated/Reviewed/Updated: Yes Orders Last 24hrs: Active Orders 24 hr Category Date Time Status Patient Status [ADT] Routine ADT 10/11/18 17:31 Active Antiembolic Devices [RC] QSHIFT Care 10/11/18 18:36 Active Cardiac Monitoring [RC] . DIRECTED Care 10/11/18 16:26 Active EKG Documentation Completion [RC] AM Care 10/11/18 22:02 Ordered Height and Weight [RC] DAILY Care 10/11/18 22:02 Ordered Intake and Output [RC] QSHIFT Care 10/11/18 22:02 Ordered Oxygen Therapy [RC] PRN Care 10/11/18 22:02 Ordered Up ad Keyla [RC] ASDIRECTED Care 10/11/18 22:02 Ordered VTE/DVT Education [RC] PER UNIT ROUTINE Care 10/11/18 22:02 Ordered Vital Signs [RC] Q4H Care 10/11/18 22:02 Ordered Heart Healthy Diet [DIET] Diet 10/12/18 Breakfast Active CBC WITH AUTO DIFF [HEME] AM Lab 10/12/18 05:11 Ordered COMPREHENSIVE METABOLIC PN,CMP [CHEM] AM Lab 10/12/18 05:11 Ordered MAGNESIUM [CHEM] AM Lab 10/12/18 05:11 Ordered PHOSPHORUS [CHEM] AM Lab 10/12/18 05:11 Ordered TROPONIN I [CHEM] AM Lab 10/12/18 05:11 Ordered Acetaminophen [Tylenol] Med 10/11/18 22:02 Ordered 650 mg PO Q4H PRN Diltiazem 125 mg Med 10/11/18 16:30 Active Sodium Chloride 0.9% [Normal Saline] 100 ml IV TITRATE Sodium Chloride 0.9% [Saline Flush] Med 10/11/18 16:26 Active 10 ml FLUSH ASDIRECTED PRN Peripheral IV Insertion Adult [OM.PC] Stat Oth 10/11/18 16:26 Ordered SCD [Sequential Compression Device] [OM.PC] Routine Oth 10/11/18 18:36 Ordered Code Status [Resuscitation Status] Routine Resus Stat 10/11/18 18:48 Ordered Medication Orders Diltiazem HCl 125 mg/ Sodium (Chloride) 125 mls @ 10 mls/hr IV TITRATE SHILOH; Protocol Last Admin: 10/11/18 16:42 Dose: 10 mg/hr, 10 mls/hr Sodium Chloride (Saline Flush) 10 ml FLUSH ASDIRECTED PRN PRN Reason: Keep Vein Open Last Admin: 10/11/18 16:35 Dose: 10 ml Assessment/Plan Comment:: Atrial fibrillation with rapid ventricular response * Patient is admitted to the ICU on a Cardizem drip at 10 an hour. * Patient be switched to by mouth in the morning. * If he converts overnight we will start him on metoprolol tartrate 25 mg twice a day. * CBC, CMP, urine drug screen, troponin in the morning * Echocardiogram * Start Eliquis 5 mg twice a day Chest pain * Likely secondary to above. * Troponin in the morning and ECG. VT prophylaxis per Eliquis Discharge in a 2-3 days.
[2018-10-12] MEDS: Metoprolol Tartrate 25 MG Tab PO SCH ×2 (06:40→08:57)
[2018-10-12] MEDS ORDERED: Apixaban 5 MG Tab PO SCH (09:00)
[2018-10-12 13:11] VITALS: BP 126/91
--- NOTE | 2018-10-12 19:22 | PCM.DCSUM1 ---
Discharge Summary - Hospital Course HPI Initial Comments: This 38-year-old male comes in this morning with complaints of chest pain and shortness of breath. Patient states that he woke up with this pain, laid down, and when he woke back up he continued to have this sharp pain in his chest that radiated to his back. Patient did notice some racing heart. Over the last month he has been feeling more tired and run down. He has not noticed chest pain or shortness of breath. He denies any PND, orthopnea, weight gain, or lower extremity edema. He has been in the emergency room a few times since 2013 for similar complaints but never found to be in atrial fibrillation. Today when he arrived his heart rate was 160-170 and appeared to be in A. fib. Patient was given Cardizem IV push and then was placed on a Cardizem drip. He is currently on 10 mg hour. Since patient has been transferred to the ICU pulse has dropped down to the 80s and 90s with occasional runs into the 110s and 120s. Patient denies any illicit drug use and only drinks 1 beer on a rare occasion. Denies any thyroid issues or other medical problems. Denies any new onset fever, chills , cough, congestion, or runny nose. Patient was seen by his primary care provider 2 weeks ago with left-sided chest pain. Patient was not in A. fib at that time and the provider discussed getting an MRI for diagnosis. Brief History: Patient did well overnight and converted this morning to normal sinus rhythm. Cardizem drip was stopped and his heart rate maintained between 60 and 70. Patient's blood pressure was also well controlled around 100-110 systolic. Patient was completely asymptomatic. Patient is a welder pipe making and we felt that with his low [id number] of 0 his risk-benefit ratio for anticoagulation tilted towards to high of a risk for bleeding. Patient will be referred to electrophysiology for further evaluation and treatment. Diagnosis: Stroke: No - Discharge Data Discharge Date: 10/12/18 Discharge Disposition: Home, Self-Care 01 Condition: Good - Discharge Diagnosis/Problem(s) (1) Atrial fibrillation with RVR SNOMED Code(s): 507574368669455 ICD Code: I48.91 - UNSPECIFIED ATRIAL FIBRILLATION Status: Acute (2) Chest pain SNOMED Code(s): 65647622 ICD Code: R07.9 - CHEST PAIN, UNSPECIFIED Status: Acute Qualifiers: Chest pain type: unspecified Qualified Code(s): R07.9 - Chest pain, unspecified - Patient Instructions Diet: Heart Healthy Diet Activity: As Tolerated Driving: May Drive Today Showering/Bathing: May Shower Other/Special Instructions: Patient needs to establish with an type copyist as soon as possible. Follow-up with primary care provider in 7 days. Metoprolol tartrate 50 mg twice a day when necessary for palpitations or racing heart. Return to ER if recurrence of atrial fibrillation with rapid ventricular response. - Discharge Plan *PRESCRIPTION DRUG MONITORING PROGRAM REVIEWED*: Not Applicable *COPY OF PRESCRIPTION DRUG MONITORING REPORT IN PATIENT MICHAELA: Not Applicable Prescriptions/Med Rec: Metoprolol Tartrate [Lopressor] 25 mg PO BID PRN #60 tablet PRN Reason: Arrhythmia Home Medications: Home Meds Metoprolol Tartrate [Lopressor] 25 mg PO BID PRN #60 tablet 10/12/18 [Rx] Oxygen Therapy Mode: Room Air Forms: ED Department Discharge Referrals: Annika Russo MD [Primary Care Provider] - Ta Vazquez [Ordering Only Provider] - 11/12/18 1:30 pm (You are being referred to a Cardiac Electophysiologist for your atrial fibrillation. Please go to [facility] ([phone]) for your appointment: [address] [place] [id number]. Arrive at 12:30 pm GUEST SERVICES ATTENDANT (11:30 pm [facility]) to have labwork done.) - Discharge Summary/Plan Comment DC Time >30 min.: Yes Discharge Summary/Plan Comment: Atrial fibrillation with rapid ventricular response * Patient converted to normal sinus rhythm and Cardizem drip was stopped. * Patient will be given metoprolol for trach 25 mg twice a day when necessary for palpitations and racing heart. * Echocardiogram - done results pending * No anticoagulation at this time due to low [id number] score Chest pain * Likely secondary to above. * Troponin and ECG negative for ischemia. Follow up with type copyist and primary care provider. - General Info Date of Service: 10/12/18 Admission Dx/Problem (Free Text: Admission Diagnosis/Problem Admission Diagnosis/Problem Atrial fibrillation Subjective Update: Patient did well overnight and converted to normal sinus rhythm. Heart rate between 60 and low 70s. Blood pressure between 03/29/20 systolic. No symptoms. Functional Status: Reports: Pain Controlled - Review of Systems General: Reports: No Symptoms HEENT: Reports: No Symptoms Pulmonary: Reports: No Symptoms. Denies: Shortness of Breath Cardiovascular: Reports: No Symptoms. Denies: Chest Pain, Palpitations, PND Gastrointestinal: Reports: No Symptoms. Denies: Abdominal Pain, Constipation - Patient Data Vitals - Most Recent: Last Vital Signs Temp 97.1 F 10/12/18 12:00 Pulse 77 10/12/18 12:00 Resp 18 10/12/18 12:00 BP 126/91 H 10/12/18 12:00 Pulse Ox 99 10/12/18 12:00 Weight - Most Recent: 230 lb I&O - Last 24 hours: Intake & Output 10/12/18 10/12/18 10/12/18 06:59 14:59 22:59 Intake Total 445 1120 Balance 445 1120 Lab Results - Last 24 hrs: Laboratory Results - last 24 hr 10/12/18 10/12/18 Range/Units 06:15 06:15 WBC 7.38 (4.23-9.07) K/mm3 RBC 4.80 (4.63-6.08) M/mm3 Hgb 15.0 (13.7-17.5) gm/L Hct 44.3 (40.1-51.0) % MCV 92.3 H (79.0-92.2) fl MCH 31.3 (25.7-32.2) pg MCHC 33.9 (32.2-35.5) g/dl RDW Std Deviation 41.4 (35.1-43.9) fL Plt Count 272 (163-337) K/mm3 MPV 10.0 (9.4-12.3) fl Neut % (Auto) 53.7 (34.0-67.9) % Lymph % (Auto) 31.8 (21.8-53.1) % [place] % (Auto) 10.2 (5.3-12.2) % Eos % (Auto) 4.1 (0.8-7.0) Baso % (Auto) 0.1 (0.1-1.2) % Neut # (Auto) 3.96 (1.78-5.38) K/mm3 Lymph # (Auto) 2.35 (1.32-3.57) K/mm3 [place] # (Auto) 0.75 (0.30-0.82) K/mm3 Eos # (Auto) 0.30 (0.04-0.54) K/mm3 Baso # (Auto) 0.01 (0.01-0.08) K/mm3 Sodium 139 (136-145) mEq/L Potassium 3.9 (3.5-5.1) mEq/L Chloride 106 (98-107) mEq/L Carbon Dioxide 23 (21-32) mEq/L Anion Gap 13.9 (5-15) BUN 15 (7-18) mg/dL Creatinine 1.1 (0.7-1.3) mg/dL Est Cr Clr Drug Dosing 94.94 mL/min Estimated GFR (MDRD) > 60 (>60) mL/min BUN/Creatinine Ratio 13.6 L (14-18) Glucose 110 H (74-106) mg/dL Calcium 9.1 (8.5-10.1) mg/dL Phosphorus 3.4 (2.6-4.7) mg/dL Magnesium 1.9 (1.8-2.4) mg/dl Total Bilirubin 0.4 (0.2-1.0) mg/dL AST 27 (15-37) U/L ALT 74 H (16-63) U/L Alkaline Phosphatase 96 (46-116) U/L Troponin I < 0.017 (0.00-0.056) ng/mL Total Protein 7.6 (6.4-8.2) g/dl Albumin 4.0 (3.4-5.0) g/dl Globulin 3.6 gm/dL Albumin/Globulin Ratio 1.1 (1-2) Med Orders - Current: Current Medications Discontinued Medications Acetaminophen (Tylenol) 650 mg PO Q4H PRN PRN Reason: Pain (Mild 1-3)/fever Apixaban (Eliquis) 5 mg PO BID SHILOH Last Admin: 10/12/18 08:03 Dose: 5 mg Diltiazem HCl (Cardizem) 10 mg IVPUSH ONETIME ONE Stop: 10/11/18 16:28 Last Admin: 10/11/18 16:33 Dose: 10 mg Sodium Chloride (Normal Saline) 1,000 mls @ 125 mls/hr IV ASDIRECTED [facility] Last Admin: 10/11/18 16:34 Dose: 125 mls/hr Diltiazem HCl 125 mg/ Sodium (Chloride) 125 mls @ 10 mls/hr IV TITRATE [facility]; Protocol Last Titration: 10/12/18 05:48 Dose: 0 mg/hr, 0 mls/hr Metoprolol Tartrate (Lopressor) 25 mg PO BID [facility] Last Admin: 10/12/18 08:57 Dose: Not Given Sodium Chloride (Saline Flush) 10 ml FLUSH ASDIRECTED PRN PRN Reason: Keep Vein Open Last Admin: 10/11/18 16:35 Dose: 10 ml - Exam General: Reports: Alert, Oriented HEENT: Reports: Pupils Equal Neck: Reports: Supple Lungs: Reports: Clear to Auscultation, Normal Respiratory Effort Cardiovascular: Reports: Regular Rate, Regular Rhythm Back Exam: Reports: Normal Inspection, Full Range of Motion Extremities: Normal Inspection, Normal Range of Motion, No Pedal Edema, Normal Capillary Refill Skin: Reports: Warm
== END 2018-10-12 15:00 | disposition home or self-care (01) | DRG 201 ==
LOC: JD.ED 16:11 → JD.ICU 17:31
PROVIDERS: ADMIT Family Medicine; ATTEND Family Medicine
DX: I48.91 Unspecified atrial fibrillation (principal); M54.9 Dorsalgia, unspecified; G89.29 Other chronic pain; F41.9 Anxiety disorder, unspecified; Z90.49 Acquired absence of other specified parts of digestive tract
CPT/HCPCS: 36415; 71045; 71045-26; 80053; 83735; 84100; 84443; 84484; 85025; 93005; 93010; 93306; 96365; 96376; 99285; 99285-25; A9270-GY; G0480; J3490; J7030; J7040

== ENCOUNTER 2018-10-16 13:04 | Emergency (ER) | payer BC ==
[2018-10-16] MEDS ORDERED: Diltiazem 120 MG Cap.CD PO ONE (13:43)
[2018-10-16 13:54] VITALS: BP 112/77
--- NOTE | 2018-10-16 15:07 | EDM.PDOC ---
ED HPI GENERAL MEDICAL PROBLEM - General Chief Complaint: Cardiovascular Problem Stated Complaint: RAPID HEART RATE Time Seen by Provider: 10/16/18 13:26 Source of Information: Reports: Patient History Limitations: Reports: No Limitations - History of Present Illness INITIAL COMMENTS - FREE TEXT/NARRATIVE: The patient presents with palpitations. He was admitted to the hospital about a week ago for new onset A-fib with RVR. A cause was not found. He did convert with cardizem. He went home with metoprolol PRN. He was doing some laundry today and he felt palpitations. He also had some shortness of breath and chest pain. He has no other symptoms like fever, chills, cough, abdominal pain, nausea or vomiting. Onset: Sudden Duration: Minutes: Location: Reports: Chest Quality: Reports: Other (tightness) Severity: Mild Improves with: Reports: None Worsens with: Reports: None Chest Pain Score (Numeric/FACES): 1 - Related Data Allergies Allergy/AdvReac Type Severity Reaction Status Date / Time No Known Allergies Allergy Verified 10/16/18 13:20 Home Meds: Home Meds Metoprolol Tartrate [Lopressor] 25 mg PO BID PRN #60 tablet 10/12/18 [Rx] Diltiazem [Cardizem CD] 120 mg PO DAILY #30 cap.er 10/16/18 [Rx] Past Medical History - Past Health History Medical/Surgical History: Denies Medical/Surgical History HEENT History: Reports: None Cardiovascular History: Reports: Other (See Below) Other Cardiovascular History: hx chest pain Respiratory History: Reports: Other (See Below) Other Respiratory History: snoring Genitourinary History: Reports: None ICE SKATER History: Reports: None Musculoskeletal History: Reports: Back Pain, Chronic, Other (See Below) Other Musculoskeletal History: shoulder pain, rotator cuff tear Neurological History: Reports: None Psychiatric History: Reports: Anxiety Other Psychiatric History: fatigue Endocrine/Metabolic History: Reports: None Hematologic History: Reports: None Immunologic History: Reports: None Oncologic (Cancer) History: Reports: None Dermatologic History: Reports: None - Infectious Disease History Infectious Disease History: Reports: TB Other Infectious Disease History: positive skin test when pt was 19 years old, med course completed - Past Surgical History Head Surgeries/Procedures: Reports: None HEENT Surgical History: Reports: None Cardiovascular Surgical History: Reports: None GI Surgical History: Reports: Cholecystectomy Other GI Surgeries/Procedures: non functioning gallbladder Male Surgical History: Reports: None Endocrine Surgical History: Reports: None Neurological Surgical History: Reports: None Musculoskeletal Surgical History: Reports: Shoulder Surgery Oncologic Surgical History: Reports: None Dermatological Surgical History: Reports: None Social & Family History - Family History Family Medical History: Noncontributory HEENT: Reports: None Cardiac: Reports: None Respiratory: Reports: None GI: Reports: None : Reports: None OBGYN: Reports: None Musculoskeletal: Reports: None Neurological: Reports: None Psychiatric: Reports: None Endocrine/Metabolic: Reports: None Hematologic: Reports: None Immunologic: Reports: None Dermatologic: Reports: None Oncologic: Reports: None - Tobacco Use Smoking Status *Q: Former Smoker Used Tobacco, but Quit: Yes Month/Year Tobacco Last Used: 06/2007 - Caffeine Use Caffeine Use: Reports: None - Recreational Drug Use Recreational Drug Use: No - Living Situation & Occupation Living situation: Reports: Occupation: Employed ED ROS GENERAL - Review of Systems Review Of Systems: See Below Constitutional: Reports: No Symptoms HEENT: Reports: No Symptoms Respiratory: Reports: Shortness of Breath Cardiovascular: Reports: Chest Pain Endocrine: Reports: No Symptoms GI/Abdominal: Reports: No Symptoms : Reports: No Symptoms Musculoskeletal: Reports: No Symptoms ED EXAM, GENERAL - Physical Exam Exam: See Below Exam Limited By: No Limitations General Appearance: Alert, No Apparent Distress Ears: Normal External Exam Nose: Normal Inspection Head: Atraumatic, Normocephalic, Sinus Tenderness Respiratory/Chest: No Respiratory Distress, Lungs Clear, Normal Breath Sounds Cardiovascular: Regular Rate, Rhythm, No Edema, No Murmur GI/Abdominal: Soft, Non-Tender, No Organomegaly, No Mass Back Exam: Normal Inspection Extremities: Normal Inspection Course - Vital Signs Last Recorded V/S: Last Vital Signs Temp 97.1 F 10/16/18 13:20 Pulse 101 H 10/16/18 13:54 Resp 24 H 10/16/18 13:20 BP 112/77 10/16/18 13:54 Pulse Ox 100 10/16/18 13:20 - Orders/Labs/Meds Orders: Active Orders 24 hr Category Date Time Status Cardiac Monitoring [RC] . DIRECTED Care 10/16/18 13:42 Active EKG Documentation Completion [RC] STAT Care 10/16/18 13:43 Active Labs: Laboratory Tests 10/16/18 10/16/18 Range/Units 14:10 14:10 WBC 6.92 (4.23-9.07) K/mm3 RBC 4.86 (4.63-6.08) M/mm3 Hgb 15.4 (13.7-17.5) gm/L Hct 43.3 (40.1-51.0) % MCV 89.1 (79.0-92.2) fl MCH 31.7 (25.7-32.2) pg MCHC 35.6 H (32.2-35.5) g/dl RDW Std Deviation 38.9 (35.1-43.9) fL Plt Count 280 (163-337) K/mm3 MPV 9.8 (9.4-12.3) fl Neut % (Auto) 54.8 (34.0-67.9) % Lymph % (Auto) 32.2 (21.8-53.1) % Prentiss % (Auto) 10.1 (5.3-12.2) % Eos % (Auto) 2.7 (0.8-7.0) Baso % (Auto) 0.1 (0.1-1.2) % Neut # (Auto) 3.78 (1.78-5.38) K/mm3 Lymph # (Auto) 2.23 (1.32-3.57) K/mm3 Prentiss # (Auto) 0.70 (0.30-0.82) K/mm3 Eos # (Auto) 0.19 (0.04-0.54) K/mm3 Baso # (Auto) 0.01 (0.01-0.08) K/mm3 Sodium 137 (136-145) mEq/L Potassium 3.7 (3.5-5.1) mEq/L Chloride 101 (98-107) mEq/L Carbon Dioxide 23 (21-32) mEq/L Anion Gap 16.7 H (5-15) BUN 20 H (7-18) mg/dL Creatinine 1.3 (0.7-1.3) mg/dL Est Cr Clr Drug Dosing 80.33 mL/min Estimated GFR (MDRD) > 60 (>60) mL/min BUN/Creatinine Ratio 15.4 (14-18) Glucose 100 (74-106) mg/dL Calcium 9.7 (8.5-10.1) mg/dL Total Bilirubin 0.6 (0.2-1.0) mg/dL AST 20 (15-37) U/L ALT 49 (16-63) U/L Alkaline Phosphatase 96 (46-116) U/L Troponin I < 0.017 (0.00-0.056) ng/mL Total Protein 8.1 (6.4-8.2) g/dl Albumin 4.5 (3.4-5.0) g/dl Globulin 3.6 gm/dL Albumin/Globulin Ratio 1.3 (1-2) Meds: Medications Discontinued Medications Generic Name Dose Route Start Last Admin Trade Name Freq PRN Reason Stop Dose Admin Diltiazem HCl 120 mg 10/16/18 13:43 10/16/18 13:54 Cardizem Cd PO 10/16/18 13:44 120 mg ONETIME ONE Administration - Re-Assessments/Exams Free Text/Narrative Re-Assessment/Exam: 10/16/18 15:07 His EKG shows a NSR with no acute changes. His CBC and CMP look good. His troponin is negative. I ordered cardizem 120mg. I will switch him to cardizem and have him follow up with his doctor. Departure - Departure Time of Disposition: 15:10 Disposition: Home, Self-Care 01 Condition: Good Clinical Impression: Palpitations Prescriptions: Diltiazem [Cardizem CD] 120 mg PO DAILY #30 cap.er Referrals: Annika Russo MD [Primary Care Provider] - 1 Week Additional Instructions: Take cardizem 120mg daily. Please return if you are worse. - My Orders Last 24 Hours: My Active Orders 10/16/18 13:42 Cardiac Monitoring [RC] . DIRECTED 10/16/18 13:43 EKG Documentation Completion [RC] STAT - Assessment/Plan Last 24 Hours: My Active Orders 10/16/18 13:42 Cardiac Monitoring [RC] . DIRECTED 10/16/18 13:43 EKG Documentation Completion [RC] STAT
== END 2018-10-16 15:22 | disposition home or self-care (01) ==
LOC: JD.ED 13:04
DX: R00.2 Palpitations (principal); Z87.891 Personal history of nicotine dependence
CPT/HCPCS: 36415; 80053; 84484; 85025; 93005; 99285; A9270; 93010; 99284

== ENCOUNTER 2018-10-29 12:47 | Emergency (ER) | payer BC ==
[2018-10-29 13:01] VITALS: BP 148/99
[2018-10-29] MEDS ORDERED: LORazepam 2 MG/ML SDV IVPUSH ONE (13:07)
--- NOTE | 2018-10-29 13:11 | EDM.PDOC ---
ED HPI GENERAL MEDICAL PROBLEM - General Chief Complaint: Chest Pain Stated Complaint: CHEST PAINS/ TROUBLE BREATHING Time Seen by Provider: 10/29/18 13:07 Source of Information: Reports: Patient History Limitations: Reports: No Limitations - History of Present Illness INITIAL COMMENTS - FREE TEXT/NARRATIVE: 38-year-old male presents to the ED complaining of left-sided chest pain. Patient is quite agitated and anxious. He states symptoms started shortly after noon today and have progressed. He states he has no position is comfortable. He is hyperventilating and is obviously very anxious. States is a deep pain in the left side of his chest and feels like his muscles are spasming in the left back as well. He has no known history of coronary disease. Denies cough or sputum production .Denies fever or chills. States he is prone to panic attacks in the past. Onset: Today Onset Date: 10/29/18 Onset Time: 12:00 Duration: Minutes:, Getting Worse Location: Reports: Chest, Back (Mostly left chris-chest and into his left upper back.) Quality: Reports: Ache ( Upper back), Other. Denies: Sharp, Stabbing Severity: Severe (Feels like his muscles are spasming.) Improves with: Reports: None Worsens with: Reports: None Context: Denies: Activity, Exercise, Lifting, Sick Contact, Trauma, Other Associated Symptoms: Reports: Chest Pain, Shortness of Breath. Denies: No Other Symptoms, Confusion, Cough, cough w sputum, Diaphoresis, Fever/Chills, Headaches, Loss of Appetite, Malaise, Nausea/Vomiting, Rash, Seizure, Syncope Treatments ICE SKATING COACH: Reports: Other (see below) (None.) Chest Pain Score (Numeric/FACES): 8 - Related Data Allergies Allergy/AdvReac Type Severity Reaction Status Date / Time No Known Allergies Allergy Verified 10/29/18 12:56 Home Meds: Home Meds Diltiazem [Cardizem CD] 120 mg PO DAILY #30 cap.er 10/16/18 [Rx] Lisinopril 10 mg PO DAILY 10/29/18 [History] Past Medical History - Past Health History Medical/Surgical History: Denies Medical/Surgical History HEENT History: Reports: None Cardiovascular History: Reports: Afib, Other (See Below) Other Cardiovascular History: hx chest pain Respiratory History: Reports: Other (See Below) Other Respiratory History: snoring Genitourinary History: Reports: None NIGHT MANAGER History: Reports: None Musculoskeletal History: Reports: Back Pain, Chronic, Other (See Below) Other Musculoskeletal History: shoulder pain, rotator cuff tear Neurological History: Reports: None Psychiatric History: Reports: Anxiety Other Psychiatric History: fatigue Endocrine/Metabolic History: Reports: None Hematologic History: Reports: None Immunologic History: Reports: None Oncologic (Cancer) History: Reports: None Dermatologic History: Reports: None - Infectious Disease History Infectious Disease History: Reports: TB Other Infectious Disease History: positive skin test when pt was 19 years old, med course completed - Past Surgical History Head Surgeries/Procedures: Reports: None HEENT Surgical History: Reports: None Cardiovascular Surgical History: Reports: None GI Surgical History: Reports: Cholecystectomy Other GI Surgeries/Procedures: non functioning gallbladder Male Surgical History: Reports: None Endocrine Surgical History: Reports: None Neurological Surgical History: Reports: None Musculoskeletal Surgical History: Reports: Shoulder Surgery Oncologic Surgical History: Reports: None Dermatological Surgical History: Reports: None Social & Family History - Family History Family Medical History: Noncontributory HEENT: Reports: None Cardiac: Reports: None Respiratory: Reports: None GI: Reports: None : Reports: None OBGYN: Reports: None Musculoskeletal: Reports: None Neurological: Reports: None Psychiatric: Reports: None Endocrine/Metabolic: Reports: None Hematologic: Reports: None Immunologic: Reports: None Dermatologic: Reports: None Oncologic: Reports: None - Tobacco Use Smoking Status *Q: Former Smoker Used Tobacco, but Quit: No - Caffeine Use Caffeine Use: Reports: None - Recreational Drug Use Recreational Drug Use: No - Living Situation & Occupation Living situation: Reports: Occupation: Employed ED ROS GENERAL - Review of Systems Review Of Systems: See Below Constitutional: Reports: Decreased Appetite. Denies: Fever, Chills, Malaise, Weakness, Fatigue, Weight Loss HEENT: Reports: No Symptoms Respiratory: Reports: Shortness of Breath. Denies: Wheezing, Pleuritic Chest Pain, Cough, Sputum Cardiovascular: Reports: Chest Pain (Feels like he cannot get a full deep breath.), Blood Pressure Problem, Lightheadedness. Denies: Claudication, Edema , Orthopnea Endocrine: Reports: No Symptoms GI/Abdominal: Reports: No Symptoms : Reports: No Symptoms Musculoskeletal: Reports: Back Pain Skin: Reports: No Symptoms (Occasional low back pain) Neurological: Reports: No Symptoms Psychiatric: Reports: Anxiety. Denies: Hallucinations Hematologic/Lymphatic: Reports: No Symptoms Immunologic: Reports: No Symptoms ED EXAM, GENERAL - Physical Exam Exam: See Below Exam Limited By: No Limitations General Appearance: Alert, WD/WN, Moderate Distress (He is hyperventilating. O2 sats 100% respiratory 24-20/m. He is having trouble sitting still on the bed prefers to sit up at the edge of the bed rather than lie back.) Eye Exam: Bilateral Eye: Normal Inspection Head: Atraumatic, Normocephalic Neck: Normal Inspection, Supple, Non-Tender, Full Range of Motion. No: Lymphadenopathy (L), Lymphadenopathy (R) Respiratory/Chest: Lungs Clear, Normal Breath Sounds, No Accessory Muscle Use, Chest Non-Tender, Respiratory Distress (Tachypnea at rest 24-28/m with hyperventilation.), Decreased Breath Sounds (Decreased breath sounds to the lower lung godinez as he is splinting.) Cardiovascular: Normal Peripheral Pulses, No Edema, No Gallop, No Murmur, No Rub , Tachycardia Peripheral Pulses: 3+: Posterior Tibial (L), Posterior Tibial (R), Dorsalis Pedis (L), Dorsalis Pedis (R) GI/Abdominal: Normal Bowel Sounds, Soft, Non-Tender, No Organomegaly, No Abnormal Bruit, No Mass, Pelvis Stable Back Exam: Normal Inspection, Full Range of Motion. No: CVA Tenderness (L), CVA Tenderness (R) Extremities: Normal Inspection, Normal Range of Motion, Non-Tender, Normal Capillary Refill Neurological: Alert, Oriented, CN II-XII Intact, Normal Cognition, No Motor/ Sensory Deficits Psychiatric: Anxious Skin Exam: Warm, Dry (Extremely anxious.), Intact Lymphatic: No Adenopathy EKG INTERPRETATION EKG Date: 10/29/18 Time: 12:54 Rhythm: Other (Sinus tachycardia. Occasional PVCs) Rate (Beats/Min): 105 [place]: Normal P-Wave: Present QRS: Normal ST-T: Normal QT: Prolonged (Borderline prolonged) EKG Interpretation Comments: Essentially normal ECG other than sinus tachycardia with no signs of ischemia. Course - Vital Signs Last Recorded V/S: Last Vital Signs Temp 36.2 C 10/29/18 12:56 Pulse 117 H 10/29/18 12:56 Resp 24 H 10/29/18 12:56 BP 148/99 H 10/29/18 12:56 Pulse Ox 100 10/29/18 12:56 - Orders/Labs/Meds Orders: Active Orders 24 hr Category Date Time Status EKG Documentation Completion [RC] STAT Care 10/29/18 13:08 Active Dextrose 5%-0.9% NaCl [Dextrose 5%-Normal Saline] 1,000 Med 10/29/18 13:15 Active ml IV ASDIRECTED Ketorolac [Toradol] Med 10/29/18 13:15 Active 30 mg IVPUSH ONETIME Medication Orders Dextrose/Sodium Chloride (Dextrose 5%-Normal Saline) 1,000 mls @ 150 mls/hr IV ASDIRECTED SHILOH Last Admin: 10/29/18 13:39 Dose: 150 mls/hr Ketorolac Tromethamine (Toradol) 30 mg IVPUSH ONETIME SHILOH Last Admin: 10/29/18 13:41 Dose: 30 mg Labs: Laboratory Tests 10/29/18 10/29/18 Range/Units 12:55 12:55 WBC 6.59 (4.23-9.07) K/mm3 RBC 4.69 (4.63-6.08) M/mm3 Hgb 15.0 (13.7-17.5) gm/L Hct 41.4 (40.1-51.0) % MCV 88.3 (79.0-92.2) fl MCH 32.0 (25.7-32.2) pg MCHC 36.2 H (32.2-35.5) g/dl RDW Std Deviation 37.7 (35.1-43.9) fL Plt Count 295 (163-337) K/mm3 MPV 10.7 (9.4-12.3) fl Neutrophils % (Manual) 60 (40-60) % Band Neutrophils % 0 (0-10) % Lymphocytes % (Manual) 25 (20-40) % Atypical Lymphs % 0 % Monocytes % (Manual) 11 H (2-10) % Eosinophils % (Manual) 2 (0.8-7.0) % Basophils % (Manual) 2 H (0.2-1.2) Platelet Estimate Adequate RBC Morph Comment Normal Sodium 136 (136-145) mEq/L Potassium 3.5 (3.5-5.1) mEq/L Chloride 99 (98-107) mEq/L Carbon Dioxide 25 (21-32) mEq/L Anion Gap 15.5 H (5-15) BUN 15 (7-18) mg/dL Creatinine 1.4 H (0.7-1.3) mg/dL Est Cr Clr Drug Dosing 74.59 mL/min Estimated GFR (MDRD) 57 (>60) mL/min BUN/Creatinine Ratio 10.7 L (14-18) Glucose 126 H (74-106) mg/dL Calcium 9.8 (8.5-10.1) mg/dL Total Bilirubin 0.6 (0.2-1.0) mg/dL AST 19 (15-37) U/L ALT 40 (16-63) U/L Alkaline Phosphatase 90 (46-116) U/L CK-MB (CK-2) < 0.5 (0-3.6) ng/ml Troponin I < 0.017 (0.00-0.056) ng/mL Total Protein 8.3 H (6.4-8.2) g/dl Albumin 4.8 (3.4-5.0) g/dl Globulin 3.5 gm/dL Albumin/Globulin Ratio 1.4 (1-2) Meds: Medications Generic Name Dose Route Start Last Admin Trade Name Freq PRN Reason Stop Dose Admin Dextrose/Sodium Chloride 1,000 mls @ 150 mls/hr 10/29/18 13:15 10/29/18 13:39 Dextrose 5%-Normal Saline IV 150 mls/hr ASDIRECTED SHILOH Administration Ketorolac Tromethamine 30 mg 10/29/18 13:15 10/29/18 13:41 Toradol IVPUSH 30 mg ONETIME SHILOH Administration Discontinued Medications Generic Name Dose Route Start Last Admin Trade Name Freq PRN Reason Stop Dose Admin Lorazepam 1.5 mg 10/29/18 13:07 10/29/18 13:38 Ativan IVPUSH 10/29/18 13:08 1.5 mg ONETIME ONE Administration - Radiology Interpretation Free Text/Narrative:: 58-year-old male presents to the ED with diffuse left-sided chest pain rating into his left upper back. He states started to develop some pain up underneath his left costal margin about noon today and it spread gradually progressed in intensity. At present he is quite agitated and anxious. He sitting on the edge of the bed as it's worse if he lies down. He is tachypneic with respiratory of 24-28/m with O2 sats 100% on room air. Clinically he is hyperventilating. Blood pressure is elevated as well. Examination lungs are clear to stage percussion. Benign abdominal examination. ECG is also normal other than sinus tachycardia at 10 5/m is no signs of ischemia. Assessment is panic attack. Plan IV D5 normal saline 150 mils per hour. Will be given Ativan 1.5 mg IV and Toradol 30 mg IV for spastic cramping type pain in his chest wall which again is likely from hyperventilation syndrome. - Re-Assessments/Exams Free Text/Narrative Re-Assessment/Exam: 10/29/18 13:32 one view chest x-ray done portably is within normal limits showing no pneumothorax or pulmonary infiltrates. Cardiac silhouette is normal. 10/29/18 13:39 patient is having a difficult time relaxing. He still fairly anxious. Respiratory is 28/m. BP is good at 111/76. Heart rate is 84 and sinus. 10/29/18 14:32 Labs reveal a normal white count at 6.59. Differential 60% neutrophils with no bands. Hemoglobin is 15.0 with hematocrit of 41.4. Sodium 136 with a potassium of 3.5. Chloride 99 with a bicarbonate 25. Anion gap is 15.5. BUN is 15 with a creatinine slightly elevated at 1.4. GFR is 57. Glucose is 126. Calcium is 9.8. Liver function normal. CK-MB less than 0.5 troponin I less than 0.017. Total protein 8.3 with a albumin fraction of 4.8. 10/29/18 14:49 patient's blood pressures remained quite low while in the ED. Most the time he is in the 100s to 106 range systolically and 75-84 diastolically. His medications were changed recently with the addition of Cardizem and 20 mg extended release once daily. This is because his had paroxysmal atrial fibrillation. I'm therefore going to advise him to discontinue the lisinopril for now and continue the Cardizem 120mg once daily at bedtime so that he may not have the adverse effects of feeling lightheaded dizzy throughout the day. Today he expressed a panic attack . He has had anxiety attacks in the past but not for many years. I'm going to send him home with 10 tablets of Ativan 1 mg strength to be used on a when necessary basis for reduction of anxiety prevention of panic attack. Departure - Departure Time of Disposition: 14:52 Disposition: Home, Self-Care 01 Condition: Fair Clinical Impression: Panic attack Adverse effects of medication Qualifiers: Encounter type: initial encounter Qualified Code(s): T50.905A - Adverse effect of unspecified drugs, medicaments and biological substances, initial encounter Instructions: Panic Attack, [id number] Referrals: PCP,None [Ordering Only Provider] - Forms: ED Department Discharge Additional Instructions: Evaluation the emergency room today in regards to atypical left-sided chest pains, agitation and hyperventilation syndrome. This essentially was a severe anxiety attack which we call panic attack. His can come on for no rhyme or reason and at any time. Chest x-ray was normal lab tests were all normal and heart tracing showed you're still in normal sinus rhythm. You were treated in the emergency room with Ativan 1.5 mg intravenously and Toradol 30 mg IV for relief of left-sided chest pains. I will write a prescription for Ativan 1 mg strength to be used on an as-needed basis for relief of anxiety attacks in the future. If anxiety attacks continue to recur frequently over the next 2-3 weeks then you need to go on a medication once daily to prevent panic attacks from occurring. The other problem identified is that your blood pressure is running too low. On average your only 100 on the top and 75-85 and the bottom number. It is likely that you're experiencing dizzy spells light headed spells and generally not feeling well due to blood pressure running too low. Therefore I suggested that you discontinue lisinopril medication at this time and continue only with the Cardizem or diltiazem tablet once daily at bedtime. Is the medication that we used to try and provide rate control for atrial fibrillation or prevent it from occurring. This lisinopril does not affect heart rate. He'll take a week or so for the lisinopril to get out of your bloodstream and blood pressure should improve by 10-12 points on the top. Temperature up to about 120 where you should be. Plan on follow-up with escalator service mechanic in 2 weeks time as planned. - My Orders Last 24 Hours: My Active Orders 10/29/18 13:08 EKG Documentation Completion [RC] STAT 10/29/18 13:15 Dextrose 5%-0.9% NaCl [Dextrose 5%-Normal Saline] 1,000 ml IV ASDIRECTED Ketorolac [Toradol] 30 mg IVPUSH ONETIME - Assessment/Plan Last 24 Hours: My Active Orders 10/29/18 13:08 EKG Documentation Completion [RC] STAT 10/29/18 13:15 Dextrose 5%-0.9% NaCl [Dextrose 5%-Normal Saline] 1,000 ml IV ASDIRECTED Ketorolac [Toradol] 30 mg IVPUSH ONETIME
[2018-10-29] MEDS ORDERED: Dextrose 5%-0.9% NaCl 1,000 ML IV SCH (13:15)
[2018-10-29] MEDS ORDERED: Ketorolac 30 MG/ML SDV IVPUSH SCH (13:15)
--- NOTE | 2018-10-29 14:12 | CR ---
Chest: Portable view of the chest was obtained. Comparison: Prior chest x-ray of 10/11/18. Heart size and mediastinum are within normal limits for portable technique. Lungs are clear. Bony structures are grossly intact. Impression: 1. Nothing acute is seen on portable chest x-ray. Diagnostic code #1
== END 2018-10-29 15:06 | disposition home or self-care (01) ==
LOC: JD.ED 12:47
DX: F41.0 Panic disorder [episodic paroxysmal anxiety] (principal); T50.905A Adverse effect of unspecified drugs, medicaments and biological substances, initial encounter; I48.91 Unspecified atrial fibrillation; Z79.899 Other long term (current) drug therapy
CPT/HCPCS: 36415; 71045; 80053; 82553; 84484; 85007; 85027; 93005; 96361; 96374; 96375; 99285; J1885; J2060; J7042